=== PATIENT | female | born 1940 | race Caucasian/White ===

== ENCOUNTER 2018-06-10 13:24 | Outpatient (RCR) | payer MEDICARE ==
[2018-04-19 12:20] LABS: HEMOGLOBIN 15.2 G/DL (11.5-16.0); MEAN PLATELET VOLUME 10.1 FL (7.4-10.4); WHITE BLOOD COUNT 9.5 10^3/uL (4.3-11.0)
[2018-04-19 13:44] LABS: BILIRUBIN,TOTAL 0.3 MG/DL (0.1-1.0); CALCIUM 9.8 MG/DL (8.5-10.1); CREATININE SERUM 0.99 MG/DL (0.60-1.30); POTASSIUM 3.9 MMOL/L (3.6-5.0)
[2018-04-19 13:45] LABS: ALBUMIN 4.2 GM/DL (3.2-4.5); TOTAL PROTEIN 7.3 GM/DL (6.4-8.2)
[2018-06-10 15:11] LABS: HEMOGLOBIN 13.8 G/DL (11.5-16.0); MEAN PLATELET VOLUME 9.8 FL (7.4-10.4); RED CELL DISTRIBUTION WIDTH 14.2 % (10.0-14.5)
[2018-06-10 15:12] LABS: BILIRUBIN,TOTAL 0.5 MG/DL (0.1-1.0); BUN/CREATININE RATIO 13; CALCIUM 9.6 MG/DL (8.5-10.1); CARBON DIOXIDE 24 MMOL/L (21-32); CHLORIDE 100 MMOL/L (98-107); CREATININE SERUM 0.68 MG/DL (0.60-1.30); GFR ESTIMATED > 60; GLUCOSE 154 MG/DL (70-105); POTASSIUM 4.1 MMOL/L (3.6-5.0); SODIUM 139 MMOL/L (135-145)
[2018-06-10 15:13] LABS: ALANINE AMINOTRANSFERASE 57 U/L (0-55); ALBUMIN 4.2 GM/DL (3.2-4.5); ALKALINE PHOSPHATASE 176 U/L (40-136); TOTAL PROTEIN 7.1 GM/DL (6.4-8.2)
[2018-07-01] MEDS ORDERED: HYDR25SU28 RC (11:31)
[2018-07-01] MEDS ORDERED: DIBU56.7 RC (11:31)
== END 2018-07-18 | disposition home or self-care (01) ==
LOC: LAB FS 13:24
PROVIDERS: ATTEND Allergy & Immunology
DX: L40.50 Arthropathic psoriasis, unspecified (principal); E55.9 Vitamin D deficiency, unspecified; Z79.899 Other long term (current) drug therapy
CPT/HCPCS: 36415; 80053; 82306; 82652; 85027; 85652; 86141

== ENCOUNTER → 2018-06-10 | Outpatient (CLI) | payer MEDICARE ==
[~2018-06-10] MED LIST: CATHETER FLUSH 10 ML SYR IV PRN; HOLD METFORMIN - RECEIVED CONTRAST 20 ML VIAL IV SCH; IOHEXOL 350 MG/ML 100 ML (OMNIPAQUE 350) VIAL IV ONE; NS 100 ML (IVPB) BAG IV ONE
--- NOTE | 2018-06-10 15:34 | Diagnostic Imaging Report ---
PROCEDURE: CT chest with contrast only. TECHNIQUE: Multiple contiguous axial images were obtained through the chest after administration of intravenous contrast. Auto Exposure Controls were utilized during the CT exam to meet ALARA standards for radiation dose reduction. INDICATION: Lung nodule noted on previous imaging. COMPARISON: Correlation is made with prior thoracic spine radiographs from earlier the same day. No prior CT chest study is available for comparison. FINDINGS: Thyroid does contain multiple small low-density nodules. No axillary lymphadenopathy is seen. There is a central right hilar mass which surrounds the right mainstem bronchus and appears to narrow the right mainstem bronchus. This also narrows the right upper lobe bronchus. Mass measures approximately 3.6 cm AP x 4.5 cm transverse. There is abnormal soft tissue extending into the subcarinal region. Prominent lymph nodes in the right infrahilar location are noted. Left hilum is unremarkable. AP window is unremarkable. The central right hilar mass is inseparable from significant consolidation involving the right upper lobe consistent with post-obstructive pneumonitis or atelectasis. No pericardial or pleural fluid is identified. There is a nodule in the left upper lobe. Metastatic nodule is suspected. There are multiple nodular densities in the superior segment of the right lower lobe, suspicious for metastatic nodules. In aggregate, this area measures approximately 3.2 x 1.3 cm. There is some scarring in the right middle lobe and lingula. Imaging through the upper abdomen demonstrates several small liver cysts. However, in addition, there are numerous solid-appearing masses throughout both lobes of the liver consistent with hepatic metastatic disease. No adrenal mass is identified. IMPRESSION: Right hilar mass suggestive of primary lung neoplasm. This is inseparable from an area of consolidation in the right upper lobe consistent with post-obstructive pneumonitis. There is mediastinal lymphadenopathy. There are nodular densities in the pulmonary parenchyma bilaterally consistent with metastatic nodules. In addition, there are numerous solid masses throughout the liver consistent with hepatic metastatic disease. Dictated by: Dictated on workstation # [id number]
== END ==
LOC: RAD FS 13:28
PROVIDERS: ATTEND Family Medicine
DX: Z01.818 Encounter for other preprocedural examination (principal); J18.1 Lobar pneumonia, unspecified organism; J98.4 Other disorders of lung; R16.0 Hepatomegaly, not elsewhere classified; R59.0 Localized enlarged lymph nodes; R91.8 Other nonspecific abnormal finding of lung field
CPT/HCPCS: 71260

== ENCOUNTER → 2018-06-10 | Outpatient (CLI) | payer MEDICARE ==
--- NOTE | 2018-06-10 10:29 | Diagnostic Imaging Report ---
CLINICAL INDICATION: Patient picked up a full mop bucket and went to empty it above her and felt pain 3 weeks ago. Pain is getting worse. EXAM: X-ray of the thoracic spine, 4 views. COMPARISON: None. FINDINGS: There is osteopenia which limits evaluation of bony detail. The upper thoracic vertebra are obscured by overlapping bone and soft tissue. There is an area of consolidation involving the medial right lung apex which extends to the superior right perihilar region. There is pleural thickening in the right lung apex region as well. There is an 11 mm nodular area involving the periphery of the left lung apex. There are increased lung markings seen throughout both lungs and patchy consolidation involving the left lung base. There is a compression deformity of a mid thoracic vertebra of unknown age. There are small degenerative spurs involving the thoracic spine. IMPRESSION: 1. There is an area of consolidation and adjacent pleural thickening in the right lung apex. A mass versus atelectasis/lung collapse may be considered. A CT scan of the chest with contrast is suggested for further evaluation. 2. There is an 11 mm nodular area involving the periphery of the left lung apex. This also would be better evaluated with a chest CT scan. 3. There is a compression deformity of the mid thoracic spine of unknown age. This would be better characterized on chest CT scan. 4. There are increased lung markings throughout both lungs and patchy consolidation involving the left lung base. These findings may be related to atelectasis or scarring but lung infiltrates cannot be completely excluded. 5. The results of this report were discussed with nurse Alee working with Dr. Hannah Mercado, via the telephone on 06/10/2018 at 1025 hours. Dictated by: Dictated on workstation # [id number]
[2018-06-10 14:22] LABS: CREATININE SERUM 0.69 MG/DL (0.60-1.30)
== END ==
LOC: RAD FS 09:29
PROVIDERS: ATTEND Family Medicine
DX: J18.1 Lobar pneumonia, unspecified organism (principal); M43.8X4 Other specified deforming dorsopathies, thoracic region; R91.1 Solitary pulmonary nodule; M54.6 Pain in thoracic spine; X50.0XXA Overexertion from strenuous movement or load, initial encounter
CPT/HCPCS: 36415; 72072; 82565; 84520

== ENCOUNTER 2018-07-01 10:05 | Emergency (ER) | payer MEDICARE ==
[~2018-07-01] VITALS: Ht 154.9 cm; Wt 71.2 kg
--- NOTE | 2018-07-01 11:01 | ED GI ---
General Chief Complaint: Rect Problems Stated Complaint: RECTAL PAIN Nursing Triage Note: PT HAD SURGERY ON HER UPPER BACK LAST SUNDAY AND HAS RECTAL PAIN SINCE YESTERDAY. HAD A BM 2 DAYS AGO. REPORTS SOFT. HAS NOT TAKEN ANYTHING FOR PAIN TODAY. HX OF HEMORROIDS. Sepsis Screen: No Definite Risk Source of Information: Patient, RN Notes Reviewed Exam Limitations: No Limitations History of Present Illness Date Seen by Provider: July 01, 2018 Time Seen by Provider: 10:59 Allergies and Home Medications Allergies Coded Allergies: No Allergy Information Available (Unverified , 06/10/18) Past Bhkswoq-Zbmocf-Sgiufo Hx Patient Social History Alcohol Use: Denies Use Recreational Drug Use: No Smoking Status: Current Everyday Smoker Type Used: Cigarettes 2nd Hand Smoke Exposure: Yes Recent Foreign Travel: No Contact w/Someone Who Travel: No Recent Infectious Disease Expo: No Recent Hopitalizations: Yes Physical Abuse: No Sexual Abuse: No Mistreated: No Fear: No Seasonal Allergies Seasonal Allergies: No Past Medical History Surgeries: Yes Bladder Surgery, Bowel Surgery, CABG, Coronary Stent, Eye Surgery, Hysterectomy , Orthopedic Respiratory: Yes COPD Cardiac: Yes Hypertension Neurological: No Genitourinary: No Musculoskeletal: Yes Chronic Back Pain Endocrine: No HEENT: No Cancer: No Psychosocial: No Integumentary: Yes Psoriasis Blood Disorders: No Physical Exam Vital Signs Vital Signs - First Documented 07/01/18 10:40 Temp 96.7 Pulse 80 B/P (MAP) 142/69 (93) Pulse Ox 97 O2 Delivery Room Air Capillary Refill : NONE Height/Weight/BMI Height: 5'1.00" Weight: 157lbs. oz. 71.500894oa; BMI Method:Stated Progress/Results/Core Measures Results/Orders Vital Signs/I&O 07/01/18 10:40 Temp 96.7 Pulse 80 B/P (MAP) 142/69 (93) Pulse Ox 97 O2 Delivery Room Air Blood Pressure Mean: 93 Departure Impression Primary Impression: Rectal or anal pain Disposition: 01 HOME, SELF-CARE Condition: Stable Departure-Patient Inst. Decision time for Depature: 11:26 Referrals: ELIAS REINA MD (PCP/Family) Primary Care Physician Patient Instructions: Anal Fissure (DC) Add. Discharge Instructions: All discharge instructions reviewed with patient and/or family. Voiced understanding. RECOMMEND 400 mg OF IBUPROFEN EVERY 6 HOURS NEEDED FOR PAIN. MAY ALSO TAKE 1000 mg OF TYLENOL EVERY 6 HOURS WELL IF NEEDED FOR PAIN. DO NOT EXCEED 4000 mg OF TYLENOL IN A 24 HOUR PERIOD. Scripts Hydrocortisone Acetate (Anusol-Hc) 25 Mg Supp.rect 25 MG RC BID for 14 Days, #30 SUPP.RECT 0 Refills Prov: BURT ESPAÑA DO 07/01/18 Dibucaine (Nupercainal) 56.7 Gm Oint...g. 56.7 GM RC QID, #1 TUBE 1 Refill Prov: BURT ESPAÑA DO 07/01/18 BURT ESPAÑA DO July 01, 2018 11:01
[2018-07-01] MEDS ORDERED: DIBU56.7 RC (11:31)
[2018-07-01] MEDS ORDERED: HYDR25SU28 RC (11:31)
[2018-07-01 11:45] VITALS: BP 132/68
== END 2018-07-01 11:46 | disposition home or self-care (01) ==
LOC: EDUNIT# 10:05 → ER FS 10:06
DX: K62.89 Other specified diseases of anus and rectum (principal); J44.9 Chronic obstructive pulmonary disease, unspecified; I10 Essential (primary) hypertension; F17.210 Nicotine dependence, cigarettes, uncomplicated; Z87.19 Personal history of other diseases of the digestive system; Z98.890 Other specified postprocedural states; Z95.1 Presence of aortocoronary bypass graft; Z90.710 Acquired absence of both cervix and uterus; Z95.5 Presence of coronary angioplasty implant and graft
CPT/HCPCS: 99284

== ENCOUNTER 2018-08-10 21:13 | Emergency (ER) | payer MEDICARE ==
[~2018-08-10] VITALS: Ht 154.9 cm; Wt 63.5 kg
[~2018-08-10 21:13] MED LIST changes: -CATHETER FLUSH 10 ML SYR IV PRN; +DIBU56.7 RC; -HOLD METFORMIN - RECEIVED CONTRAST 20 ML VIAL IV SCH; +HYDR25SU28 RC; -IOHEXOL 350 MG/ML 100 ML (OMNIPAQUE 350) VIAL IV ONE; -NS 100 ML (IVPB) BAG IV ONE
--- OUTSIDE RECORDS SUMMARY | 2018-08-10 21:20 | XMS REPORT | Continuity of Care Document ---
Author Organization Unknown Address Unknown Allergies Active Description Code Type Severity Reaction Onset Reported/Identified Relationship to Patient Clinical Status Yes No Allergy Information Available [id number] Drug Allergy Unknown N/A 06/10/2018 Medications There is no data. Problems Date Dx Coded Attending Type Code Diagnosis Diagnosed By 04/19/2018 TONIA CASTANON MD, Ot L40.50 ARTHROPATHIC PSORIASIS, UNSPECIFIED 04/19/2018 TONIA CASTANON MD, Ot L40.50 ARTHROPATHIC PSORIASIS, UNSPECIFIED 06/10/2018 TONIA CASTANON MD, Ot L40.50 ARTHROPATHIC PSORIASIS, UNSPECIFIED 06/11/2018 ELIAS REINA MD Ot J18.1 LOBAR PNEUMONIA, UNSPECIFIED ORGANISM 06/11/2018 ELIAS REINA MD Ot M43.8X4 OTHER SPECIFIED DEFORMING DORSOPATHIES, 06/11/2018 ELIAS REINA MD Ot M54.6 PAIN IN THORACIC SPINE 06/11/2018 ELIAS REINA MD Ot R91.1 SOLITARY PULMONARY NODULE 06/11/2018 ELIAS REINA MD Ot X50.0XXA OVEREXERTION FROM STRENUOUS MOVEMENT OR 06/11/2018 ELIAS REINA MD Ot J18.1 LOBAR PNEUMONIA, UNSPECIFIED ORGANISM 06/11/2018 ELIAS REINA MD Ot J98.4 OTHER DISORDERS OF LUNG 06/11/2018 ELIAS REINA MD Ot R16.0 HEPATOMEGALY, NOT ELSEWHERE CLASSIFIED 06/11/2018 ELIAS REINA MD Ot R59.0 LOCALIZED ENLARGED LYMPH NODES 06/11/2018 ELIAS REINA MD Ot R91.8 OTHER NONSPECIFIC ABNORMAL FINDING OF CHRISTY 06/11/2018 ELIAS REINA MD Ot Z01.818 ENCOUNTER FOR OTHER PREPROCEDURAL EXAMIN 06/11/2018 ELIAS REINA MD, Ot J18.1 LOBAR PNEUMONIA, UNSPECIFIED ORGANISM 06/11/2018 REINA MD, ELIAS M Ot M43.8X4 OTHER SPECIFIED DEFORMING DORSOPATHIES, 06/11/2018 ELIAS REINA MD Ot M54.6 PAIN IN THORACIC SPINE 06/11/2018 ELIAS REINA MD Ot R91.1 SOLITARY PULMONARY NODULE 06/11/2018 ELIAS REINA MD Ot X50.0XXA OVEREXERTION FROM STRENUOUS MOVEMENT OR 06/12/2018 ELIAS REINA MD Ot J18.1 LOBAR PNEUMONIA, UNSPECIFIED ORGANISM 06/12/2018 ELIAS REINA MD Ot J98.4 OTHER DISORDERS OF LUNG 06/12/2018 ELIAS REINA MD Ot R16.0 HEPATOMEGALY, NOT ELSEWHERE CLASSIFIED 06/12/2018 ELIAS REINA MD Ot R59.0 LOCALIZED ENLARGED LYMPH NODES 06/12/2018 ELIAS REINA MD Ot R91.8 OTHER NONSPECIFIC ABNORMAL FINDING OF CHRISTY 06/12/2018 ELIAS REINA MD Ot Z01.818 ENCOUNTER FOR OTHER PREPROCEDURAL EXAMIN 06/12/2018 ELIAS REINA MD Ot J18.1 LOBAR PNEUMONIA, UNSPECIFIED ORGANISM 06/12/2018 ELIAS REINA MD Ot J98.4 OTHER DISORDERS OF LUNG 06/12/2018 ELIAS REINA MD Ot R16.0 HEPATOMEGALY, NOT ELSEWHERE CLASSIFIED 06/12/2018 ELIAS REINA MD Ot R59.0 LOCALIZED ENLARGED LYMPH NODES 06/12/2018 ELIAS REINA MD Ot R91.8 OTHER NONSPECIFIC ABNORMAL FINDING OF CHRISTY 06/12/2018 ELIAS REINA MD Ot Z01.818 ENCOUNTER FOR OTHER PREPROCEDURAL EXAMIN 06/13/2018 ELIAS REINA MD Ot J18.1 LOBAR PNEUMONIA, UNSPECIFIED ORGANISM 06/13/2018 ELIAS REINA MD Ot M43.8X4 OTHER SPECIFIED DEFORMING DORSOPATHIES, 06/13/2018 ELIAS REINA MD Ot M54.6 PAIN IN THORACIC SPINE 06/13/2018 ELIAS REINA MD Ot R91.1 SOLITARY PULMONARY NODULE 06/13/2018 ELIAS REINA MD Ot X50.0XXA OVEREXERTION FROM STRENUOUS MOVEMENT OR 06/13/2018 ELIAS REINA MD, Ot J18.1 LOBAR PNEUMONIA, UNSPECIFIED ORGANISM 06/13/2018 ELIAS REINA MD Ot J98.4 OTHER DISORDERS OF LUNG 06/13/2018 ELIAS REINA MD Ot R16.0 HEPATOMEGALY, NOT ELSEWHERE CLASSIFIED 06/13/2018 ELIAS REINA MD Ot R59.0 LOCALIZED ENLARGED LYMPH NODES 06/13/2018 ELIAS REINA MD Ot R91.8 OTHER NONSPECIFIC ABNORMAL FINDING OF CHRISTY 06/13/2018 ELIAS REINA MD, Ot Z01.818 ENCOUNTER FOR OTHER PREPROCEDURAL EXAMIN 06/13/2018 LG PICKERING, TONIA Mercer Ot L40.50 ARTHROPATHIC PSORIASIS, UNSPECIFIED 06/16/2018 ELIAS REINA MD, Ot J18.1 LOBAR PNEUMONIA, UNSPECIFIED ORGANISM 06/16/2018 ELIAS REINA MD Ot M43.8X4 OTHER SPECIFIED DEFORMING DORSOPATHIES, 06/16/2018 ELIAS REINA MD Ot M54.6 PAIN IN THORACIC SPINE 06/16/2018 ELIAS REINA MD, Ot R91.1 SOLITARY PULMONARY NODULE 06/16/2018 ELIAS REINA MD Ot X50.0XXA OVEREXERTION FROM STRENUOUS MOVEMENT OR 07/01/2018 BURT ESPAÑA DO Ot F17.210 NICOTINE DEPENDENCE, CIGARETTES, UNCOMPL 07/01/2018 BURT ESPAÑA DO Ot I10 ESSENTIAL (PRIMARY) HYPERTENSION 07/01/2018 BURT ESPAÑA DO, Ot J44.9 CHRONIC OBSTRUCTIVE PULMONARY DISEASE, U 07/01/2018 BURT ESPAÑA DO Ot K62.89 OTHER SPECIFIED DISEASES OF ANUS AND REC 07/01/2018 BURT ESPAÑA DO, Ot Z87.19 PERSONAL HISTORY OF OTHER DISEASES OF TH 07/01/2018 BURT ESPAÑA DO, Ot Z90.710 ACQUIRED ABSENCE OF BOTH CERVIX AND UTER 07/01/2018 BURT ESPAÑA DO Ot Z95.1 PRESENCE OF AORTOCORONARY BYPASS GRAFT 07/01/2018 BURT ESPAÑA DO Ot Z95.5 PRESENCE OF CORONARY ANGIOPLASTY IMPLANT 07/01/2018 BURT ESPAÑA DO, Ot Z98.890 OTHER SPECIFIED POSTPROCEDURAL STATES 07/02/2018 ELIAS REINA MD, Ot J18.1 LOBAR PNEUMONIA, UNSPECIFIED ORGANISM 07/02/2018 ELIAS REINA MD, Ot M43.8X4 OTHER SPECIFIED DEFORMING DORSOPATHIES, 07/02/2018 ELIAS REINA MD, Ot M54.6 PAIN IN THORACIC SPINE 07/02/2018 ELIAS REINA MD, Ot R91.1 SOLITARY PULMONARY NODULE 07/02/2018 ELIAS REINA MD, Ot X50.0XXA OVEREXERTION FROM STRENUOUS MOVEMENT OR 07/04/2018 BURT ESPAÑA DO, Ot F17.210 NICOTINE DEPENDENCE, CIGARETTES, UNCOMPL 07/04/2018 BURT ESPAÑA DO, Ot I10 ESSENTIAL (PRIMARY) HYPERTENSION 07/04/2018 BURT ESPAÑA DO, Ot J44.9 CHRONIC OBSTRUCTIVE PULMONARY DISEASE, U 07/04/2018 BURT ESPAÑA DO, Ot K62.89 OTHER SPECIFIED DISEASES OF ANUS AND REC 07/04/2018 BURT ESPAÑA DO, Ot Z87.19 PERSONAL HISTORY OF OTHER DISEASES OF TH 07/04/2018 BURT ESPAÑA DO, Ot Z90.710 ACQUIRED ABSENCE OF BOTH CERVIX AND UTER 07/04/2018 BURT ESPAÑA DO, Ot Z95.1 PRESENCE OF AORTOCORONARY BYPASS GRAFT 07/04/2018 BURT ESPAÑA DO, Ot Z95.5 PRESENCE OF CORONARY ANGIOPLASTY IMPLANT 07/04/2018 BURT ESPAÑA DO, Ot Z98.890 OTHER SPECIFIED POSTPROCEDURAL STATES 07/04/2018 ELIAS REINA MD, Ot J18.1 LOBAR PNEUMONIA, UNSPECIFIED ORGANISM 07/04/2018 ELIAS REINA MD, Ot J98.4 OTHER DISORDERS OF LUNG 07/04/2018 ELIAS REINA MD, Ot R16.0 HEPATOMEGALY, NOT ELSEWHERE CLASSIFIED 07/04/2018 ELIAS REINA MD, Ot R59.0 LOCALIZED ENLARGED LYMPH NODES 07/04/2018 ELIAS REINA MD, Ot R91.8 OTHER NONSPECIFIC ABNORMAL FINDING OF CHRISTY 07/04/2018 ELIAS REINA MD, Ot Z01.818 ENCOUNTER FOR OTHER PREPROCEDURAL EXAMIN 07/09/2018 TONIA CASTANON MD Ot L40.50 ARTHROPATHIC PSORIASIS, UNSPECIFIED 07/18/2018 TONIA CASTANON MD Ot E55.9 VITAMIN D DEFICIENCY, UNSPECIFIED 07/18/2018 TONIA CASTANON MD, Ot L40.50 ARTHROPATHIC PSORIASIS, UNSPECIFIED 07/18/2018 TONIA CASTANON MD, Ot Z79.899 OTHER ARC TRIMMER (CURRENT) DRUG THERAPY 07/19/2018 TONIA CASTANON MD, Ot E55.9 VITAMIN D DEFICIENCY, UNSPECIFIED 07/19/2018 TONIA CASTANON MD, Ot L40.50 ARTHROPATHIC PSORIASIS, UNSPECIFIED 07/19/2018 TONIA CASTANON MD, Ot Z79.899 OTHER ARC TRIMMER (CURRENT) DRUG THERAPY Procedures There is no data. Results Test Result Range Automated blood complete blood count (hemogram) panel - 04/19/18 12:10 Blood leukocytes automated count (number/volume) 9.5 10*3/uL 4.3-11.0 Blood erythrocytes automated count (number/volume) 4.74 10*6/uL 4.35-5.85 Venous blood hemoglobin measurement (mass/volume) 15.2 g/dL 11.5-16.0 Blood hematocrit (volume fraction) 47 % 35-52 Automated erythrocyte mean corpuscular volume 99 [foz_us] 80-99 Automated erythrocyte mean corpuscular hemoglobin (mass per erythrocyte) 32 pg 25-34 Automated erythrocyte mean corpuscular hemoglobin concentration measurement (mass/volume) 32 g/dL 32-36 Automated erythrocyte distribution width ratio 14.0 % 10.0- 14.5 Automated blood platelet count (count/volume) 289 10*3/uL 130-400 Automated blood platelet mean volume measurement 10.1 [foz_us] 7.4-10.4 Erythrocyte sedimentation rate by westergren method - 04/19/18 12:10 Erythrocyte sedimentation rate by westergren method 17 mm 0-30 Comprehensive metabolic panel - 04/19/18 12:10 Serum or plasma sodium measurement (moles/volume) 139 mmol/L 135-145 Serum or plasma potassium measurement (moles/volume) 3.9 mmol/L 3.6-5.0 Serum or plasma chloride measurement (moles/volume) 100 mmol/L 98-107 Carbon dioxide 28 mmol/L 21-32 Serum or plasma anion gap determination (moles/volume) 11 mmol/L 5-14 Serum or plasma urea nitrogen measurement (mass/volume) 11 mg/dL 7-18 Serum or plasma creatinine measurement (mass/volume) 0.99 mg/dL 0.60-1.30 Serum or plasma urea nitrogen/creatinine mass ratio 11 NRG Serum or plasma creatinine measurement with calculation of estimated glomerular filtration rate 55 NRG Serum or plasma glucose measurement (mass/volume) 92 mg/dL 70-105 Serum or plasma calcium measurement (mass/volume) 9.8 mg/dL 8.5-10.1 Serum or plasma total bilirubin measurement (mass/volume) 0.3 mg/dL 0.1-1.0 Serum or plasma alkaline phosphatase measurement (enzymatic activity/volume) 112 U/L 40-136 Serum or plasma aspartate aminotransferase measurement (enzymatic activity/volume) 15 U/L 5-34 Serum or plasma alanine aminotransferase measurement (enzymatic activity/volume) 13 U/L 0-55 Serum or plasma protein measurement (mass/volume) 7.3 g/dL 6.4-8.2 Serum or plasma albumin measurement (mass/volume) 4.2 g/dL 3.2-4.5 CALCIUM CORRECTED 9.6 mg/dL 8.5-10.1 Serum or plasma C reactive protein measurement (mass/volume) - 04/19/18 12:10 Serum or plasma C reactive protein measurement (mass/volume) 1.50 mg/dL 0.00-0.50 Serum or plasma calcitriol measurement (mass/volume) - 04/19/18 12:10 Serum or plasma calcitriol measurement (mass/volume) 45.9 pg/mL 19.9-79.3 Serum or plasma urea nitrogen measurement (mass/volume) - 06/10/18 13:45 Serum or plasma urea nitrogen measurement (mass/volume) 9 mg/dL 7-18 Serum or plasma creatinine measurement (mass/volume) - 06/10/18 13:45 Serum or plasma creatinine measurement (mass/volume) 0.69 mg/dL 0.60-1.30 Automated blood complete blood count (hemogram) panel - 06/10/18 13:45 Blood leukocytes automated count (number/volume) 10.0 10*3/uL 4.3-11.0 Blood erythrocytes automated count (number/volume) 4.33 10*6/uL 4.35-5.85 Venous blood hemoglobin measurement (mass/volume) 13.8 g/dL 11.5-16.0 Blood hematocrit (volume fraction) 43 % 35-52 Automated erythrocyte mean corpuscular volume 100 [foz_us] 80-99 Automated erythrocyte mean corpuscular hemoglobin (mass per erythrocyte) 32 pg 25-34 Automated erythrocyte mean corpuscular hemoglobin concentration measurement (mass/volume) 32 g/dL 32-36 Automated erythrocyte distribution width ratio 14.2 % 10.0- 14.5 Automated blood platelet count (count/volume) 320 10*3/uL 130-400 Automated blood platelet mean volume measurement 9.8 [foz_us] 7.4-10.4 Erythrocyte sedimentation rate by westergren method - 06/10/18 13:45 Erythrocyte sedimentation rate by westergren method 30 mm 0-30 Comprehensive metabolic panel - 06/10/18 13:45 Serum or plasma sodium measurement (moles/volume) 139 mmol/L 135-145 Serum or plasma potassium measurement (moles/volume) 4.1 mmol/L 3.6-5.0 Serum or plasma chloride measurement (moles/volume) 100 mmol/L 98-107 Carbon dioxide 24 mmol/L 21-32 Serum or plasma anion gap determination (moles/volume) 15 mmol/L 5-14 Serum or plasma urea nitrogen measurement (mass/volume) 9 mg/dL 7-18 Serum or plasma creatinine measurement (mass/volume) 0.68 mg/dL 0.60-1.30 Serum or plasma urea nitrogen/creatinine mass ratio 13 NRG Serum or plasma creatinine measurement with calculation of estimated glomerular filtration rate > NRG Serum or plasma glucose measurement (mass/volume) 154 mg/dL 70-105 Serum or plasma calcium measurement (mass/volume) 9.6 mg/dL 8.5-10.1 Serum or plasma total bilirubin measurement (mass/volume) 0.5 mg/dL 0.1-1.0 Serum or plasma alkaline phosphatase measurement (enzymatic activity/volume) 176 U/L 40-136 Serum or plasma aspartate aminotransferase measurement (enzymatic activity/volume) 47 U/L 5-34 Serum or plasma alanine aminotransferase measurement (enzymatic activity/volume) 57 U/L 0-55 Serum or plasma protein measurement (mass/volume) 7.1 g/dL 6.4-8.2 Serum or plasma albumin measurement (mass/volume) 4.2 g/dL 3.2-4.5 CALCIUM CORRECTED 9.4 mg/dL 8.5-10.1 Serum or plasma C reactive protein measurement (mass/volume) - 06/10/18 13:45 Serum or plasma C reactive protein measurement (mass/volume) 6.67 mg/dL 0.00-0.50 VITAMIN D 25-HYDROXY - 06/10/18 13:45 VITAMIN D 25-HYDROXY (TOTAL) 40.1 % 30.0-100.0 Encounters ACCT No. Visit Date/Time Discharge Status Pt. Type Provider Facility Loc./Unit Complaint [id number] 07/19/2018 00:11:00 07/19/2018 23:59:59 CLS Preadmit TONIA CASTANON MD [facility] LAB FS L40.50 Z79.899 E55.9 [id number] 06/10/2018 13:24:00 07/18/2018 00:01:00 DIS Outpatient TONIA CASTANON MD [facility] LAB FS L40.50 Z79.899 E55.9 [id number] 07/01/2018 10:06:00 07/01/2018 11:46:00 DIS Emergency BURT ESPAÑA DO [facility] ER FS RECTAL PAIN [id number] 06/10/2018 13:28:00 06/10/2018 23:59:59 CLS Outpatient ELIAS REINA MD [facility] RAD FS LUNG NODULE [id number] 06/10/2018 09:29:00 06/10/2018 23:59:59 CLS Outpatient ELIAS REINA MD [facility] RAD FS M54.6
[2018-08-10] MEDS ORDERED: fentaNYL INJECTION 100 MCG/2 ML AMP IVP STA (21:30)
[2018-08-10] MEDS ORDERED: ONDANSETRON 4 MG/2 ML (SDV) Z0FRAN IVP ONE (21:30)
[2018-08-10 21:45] LABS: HEMATOCRIT 40 % (35-52); HEMOGLOBIN 12.8 G/DL (11.5-16.0); MEAN CORPUSCULAR HEMOGLOBIN 32 PG (25-34); MEAN CORPUSCULAR VOLUME 102 FL (80-99); WHITE BLOOD COUNT 18.4 10^3/uL (4.3-11.0)
[2018-08-10] MEDS ORDERED: NS IV 1000 ML 1,000 ML IV SCH (21:45)
[2018-08-10 21:46] LABS: BASOPHILS % (AUTO) 0 % (0-10); EOSINOPHILS % (AUTO) 0 % (0-10); LYMPHOCYTES # (AUTO) 2.2 X 10^3 (1.0-4.0); LYMPHOCYTES % (AUTO) 12 % (12-44); MEAN CORPUSCULAR HGB CONC 32 G/DL (32-36); MEAN PLATELET VOLUME 10.3 FL (7.4-10.4); MONOCYTES # (AUTO) 1.2 X 10^3 (0.0-1.0); MONOCYTES % (AUTO) 7 % (0-12); NEUTROPHILS # (AUTO) 14.6 X 10^3 (1.8-7.8); NEUTROPHILS % (AUTO) 79 % (42-75); PLATELET COUNT 332 10^3/uL (130-400); RED CELL DISTRIBUTION WIDTH 16.5 % (10.0-14.5)
[2018-08-10 22:04] LABS: BAND NEUTROPHILS 1 %; INR 1.2 (0.8-1.4); LYMPHOCYTES % (MANUAL) 12 %; MONOCYTES % (MANUAL) 4 %; NEUTROPHILS % (MANUAL) 82 %; PROTHROMBIN TIME PATIENT 15.4 SEC (12.2-14.7)
[2018-08-10 22:05] LABS: BASOPHILS % (MANUAL) 0 %; EOSINOPHILS % (MANUAL) 0 %; METAMYELOCYTES % 1 %
[2018-08-10 22:19] LABS: BILIRUBIN,TOTAL 3.1 MG/DL (0.1-1.0); BUN/CREATININE RATIO 38; CALCIUM 9.8 MG/DL (8.5-10.1); CARBON DIOXIDE 24 MMOL/L (21-32); CHLORIDE 94 MMOL/L (98-107); CREATININE SERUM 0.72 MG/DL (0.60-1.30); GFR ESTIMATED > 60; GLUCOSE 89 MG/DL (70-105); POTASSIUM 4.2 MMOL/L (3.6-5.0); SODIUM 135 MMOL/L (135-145)
[2018-08-10 22:20] LABS: ALANINE AMINOTRANSFERASE 61 U/L (0-55); ALBUMIN 3.9 GM/DL (3.2-4.5); ALKALINE PHOSPHATASE 403 U/L (40-136); TOTAL PROTEIN 6.6 GM/DL (6.4-8.2)
[2018-08-10] MEDS ORDERED: RT-ALBUTEROL/IPRATROPIUM 3 ML (DUONEB) VIAL INH ONE (22:30)
[2018-08-10] MEDS ORDERED: FUROSEMIDE 40 MG/4 ML INJ (LASIX) IVP ONE (22:45)
[2018-08-10] MEDS ORDERED: fentaNYL INJECTION 100 MCG/2 ML AMP IVP ONE (23:00)
[2018-08-10] MEDS ORDERED: cefTRIAXone FOR IV USE 1,000 MG in WATER (STERILE) FOR INJECTION 10 ML IV ONE (23:00)
--- NOTE | 2018-08-10 23:11 | ED General ---
General Chief Complaint: Lower Extremity Stated Complaint: FELL INJURED RT LEG Nursing Triage Note: Patient states that she had fallen approximately 2 weeks ago, hurting her right hip. Patient states that the pain and weakness is getting worse. Patient has a large bruise on her right hip that extends down to her thigh. +2 pitting pedal edema is noted bilaterally. She had stopped taking her plavix after she noticed the bruising. Patient is complaining of generalized pain. She is a hospice patient for lung cancer and states her pain medications are not working. Nursing Sepsis Screen: No Definite Risk Source of Information: Patient Exam Limitations: No Limitations History of Present Illness Date Seen by Provider: Aug 10, 2018 Time Seen by Provider: 22:00 Initial Comments Patient is a 78-year-old home hospice patient with diagnosis of metastatic lung cancer currently not on chemotherapy who presents with generalized weakness, generalized pain, bilateral peripheral edema and a large bruise over her right eye, and leg after falling 2 weeks ago. Patient discontinued Plavix at time of fall. Denies fever or vomiting, chest pain. Reports progressive shortness of breath. No nausea or vomiting. Reports decreased appetite and generalized malaise increased increased urinary frequency. Patient has a home hospice nurse help her out and so weak and help of adult children and friends. Patient's primary reason for coming to the used to identify because of continued right leg pain with bruising. Timing/Duration: Changing Over Time Modifying Factors: improves with Movement Allergies and Home Medications Allergies Coded Allergies: codeine (Verified Allergy, Unknown, 08/10/18) Home Medications Dibucaine 56.7 Gm Oint...g., 56.7 GM RC QID Prescribed by: BURT ESPAÑA on 07/01/18 1131 Hydrocortisone Acetate 25 Mg Supp.rect, 25 MG RC BID Prescribed by: BURT ESPAÑA on 07/01/18 1131 Patient Home Medication List Home Medication List Reviewed: Yes Review of Systems Review of Systems Constitutional: see HPI EENTM: see HPI Respiratory: see HPI, cough Cardiovascular: see HPI Genitourinary: see HPI Musculoskeletal: see HPI Skin: see HPI Psychiatric/Neurological: See HPI Hematologic/Lymphatic: See HPI Immunological/Allergic: see HPI Past Ttcbzjl-Kzmayb-Honmhm Hx Past Med/Social Hx: Reviewed Nursing Past Med/Soc Hx Patient Social History Alcohol Use: Denies Use Recreational Drug Use: No Smoking Status: Current Everyday Smoker Type Used: Cigarettes 2nd Hand Smoke Exposure: Yes Recent Foreign Travel: No Contact w/Someone Who Travel: No Recent Infectious Disease Expo: No Recent Hopitalizations: Yes Physical Abuse: No Sexual Abuse: No Mistreated: No Fear: No Seasonal Allergies Seasonal Allergies: No Past Medical History Surgeries: Yes Bladder Surgery, Bowel Surgery, CABG, Coronary Stent, Eye Surgery, Hysterectomy, Orthopedic Respiratory: Yes COPD Cardiac: Yes Hypertension Neurological: No Genitourinary: No Musculoskeletal: Yes Chronic Back Pain Endocrine: No HEENT: No Cancer: No Psychosocial: No Integumentary: Yes Psoriasis Blood Disorders: No Physical Exam Vital Signs Vital Signs - First Documented 08/10/18 21:46 Temp 97.4 Pulse 86 Resp 24 B/P (MAP) 135/117 (123) Pulse Ox 93 O2 Delivery Room Air Capillary Refill : Greater Than 3 Seconds Height, Weight, BMI Height: 5'1.00" Weight: 140lbs. 0oz. [id number]; BMI Method:Stated General Appearance: Chronically ill, Mild Distress Eyes: Bilateral Eye Normal Inspection, Bilateral Eye PERRL HEENT: Pharynx Normal Neck: Supple, JVD Respiratory: Decreased Breath Sounds, Rhonci Cardiovascular: Regular Rate, Rhythm, Other (peripheral edema) Gastrointestinal: Non Tender, Soft Back: Normal Inspection Neurologic/Psychiatric: Alert, No Motor/Sensory Deficits, Normal Mood/Affect, rn concurrent review II-XII Norm as Tested Skin: Other (large bruise, involving right anterior and posterior thigh extend ing inguinal ligament to upper leg/. O deformity) Focused Exam Possible Source: Unknown Progress/Results/Core Measures Suspected Sepsis Recent Fever Within 48 Hours: No Infection Criteria Present: None New/Unexplained Altered Menta: No Sepsis Screen: No Definite Risk SIRS Temperature:97.4 Pulse: 86 Respiratory Rate: 24 Laboratory Tests 08/10/18 21:35: White Blood Count 18.4H Blood Pressure 135 /117 Mean: 123 Laboratory Tests 08/10/18 21:35: Creatinine 0.72, INR Comment 1.2, Platelet Count 332, Total Bilirubin 3.1H Results/Orders Lab Results Laboratory Tests Test 08/10/18 21:35 Range/Units White Blood Count 18.4 H 4.3-11.0 10^3/uL Red Blood Count 3.95 L 4.35-5.85 10^6/uL Hemoglobin 12.8 11.5-16.0 G/DL Hematocrit 40 35-52 % Mean Corpuscular Volume 102 H 80-99 FL Mean Corpuscular Hemoglobin 32 25-34 PG Mean Corpuscular Hemoglobin Concent 32 32-36 G/DL Red Cell Distribution Width 16.5 H 10.0-14.5 % Platelet Count 332 130-400 10^3/uL Mean Platelet Volume 10.3 7.4-10.4 FL Neutrophils (%) (Auto) 79 H 42-75 % Lymphocytes (%) (Auto) 12 12-44 % Monocytes (%) (Auto) 7 0-12 % Eosinophils (%) (Auto) 0 0-10 % Basophils (%) (Auto) 0 0-10 % Neutrophils # (Auto) 14.6 H 1.8-7.8 X 10^3 Lymphocytes # (Auto) 2.2 1.0-4.0 X 10^3 Monocytes # (Auto) 1.2 H 0.0-1.0 X 10^3 Eosinophils # (Auto) 0.0 0.0-0.3 10^3/uL Basophils # (Auto) 0.0 0.0-0.1 10^3/uL Neutrophils % (Manual) 82 % Lymphocytes % (Manual) 12 % Monocytes % (Manual) 4 % Eosinophils % (Manual) 0 % Basophils % (Manual) 0 % Metamyelocytes % 1 % Band Neutrophils 1 % Prothrombin Time 15.4 H 12.2-14.7 SEC INR Comment 1.2 0.8-1.4 Activated Partial Thromboplast Time 27 24-35 SEC Sodium Level 135 135-145 MMOL/L Potassium Level 4.2 3.6-5.0 MMOL/L Chloride Level 94 L 98-107 MMOL/L Carbon Dioxide Level 24 21-32 MMOL/L Anion Gap 17 H 5-14 MMOL/L Blood Urea Nitrogen 27 H 7-18 MG/DL Creatinine 0.72 0.60-1.30 MG/DL Estimat Glomerular Filtration Rate > 60 BUN/Creatinine Ratio 38 Glucose Level 89 70-105 MG/DL Calcium Level 9.8 8.5-10.1 MG/DL Corrected Calcium 9.9 8.5-10.1 MG/DL Total Bilirubin 3.1 H 0.1-1.0 MG/DL Aspartate Amino Transf (AST/SGOT) 126 H 5-34 U/L Alanine Aminotransferase (ALT/SGPT) 61 H 0-55 U/L Alkaline Phosphatase 403 H 40-136 U/L Pro-B-Type Natriuretic Peptide 1145.0 H <75.0 PG/ML Total Protein 6.6 6.4-8.2 GM/DL Albumin 3.9 3.2-4.5 GM/DL My Orders Orders - MEGAN DIAZ DO Cbc With Automated Diff (08/10/18 21:30) Comprehensive Metabolic Panel (08/10/18:30) Protime With Inr (08/10/18:30) Partial Thromboplastin Time (08/10/18:30) Chest 1 View Ap/Pa Only (08/10/18:30) Ua Culture If Indicated (08/10/18:30) Creatine Kinase (08/10/18:30) Probnp Fs (08/10/18:30) Ekg Tracing (08/10/18:30) Fentanyl Injection (Sublimaze Injection (08/10/18 21:30) Ondansetron Injection (Zofran Injectio (08/10/18 21:30) Ns Iv 1000 Ml (Sodium Chloride 0.9%) (08/10/18 21:45) Femur 2 View Right (08/10/18 21:43) Pelvis (Ap) (08/10/18 21:46) Manual Differential (08/10/18 21:35) Albuterol/Ipra Inhalation Soln (Duoneb I (08/10/18 22:30) Svn Small Volume Nebulizer (08/10/18 22:22) Furosemide Injection (Lasix Injection) (08/10/18 22:45) Fentanyl Injection (Sublimaze Injection (08/10/18 23:00) Ceftriaxone For Iv Use (Rocephin For I (08/10/18 23:00) Medications Given in ED Current Medications Medications Dose Ordered Sig/Eliud Route Start Time Stop Time Status Last Admin Dose Admin Albuterol/ Ipratropium 3 ml ONCE ONCE INH 08/10/18 22:30 08/10/18 22:41 DC 08/10/18 22:48 3 ML Ceftriaxone Sodium 1000 mg/ Sterile Water 10 ml @ 200 mls/hr ONCE ONCE IV 08/10/18 23:00 08/10/18 23:02 DC 08/10/18 23:02 200 MLS/HR Fentanyl Citrate 50 mcg ONCE ONCE IVP 08/10/18 23:00 08/10/18 23:01 DC 08/10/18 22:57 50 MCG Furosemide 40 mg ONCE ONCE IVP 08/10/18 22:45 08/10/18 22:46 DC 08/10/18 22:48 40 MG Ondansetron HCl 4 mg ONCE ONCE IVP 08/10/18 21:30 08/10/18 21:32 DC 08/10/18 21:45 4 MG Vital Signs/I&O 08/10/18 21:46 Temp 97.4 Pulse 86 Resp 24 B/P (MAP) 135/117 (123) Pulse Ox 93 O2 Delivery Room Air Capillary Refill : Greater Than 3 Seconds Blood Pressure Mean: 123 Departure Communication (Admissions) Patient is not seeking care or treatment of her underlying medical conditions. She is seeking palliative care in the emergency department. I did offer further diagnosis, and treatment including home antibiotic and diuresis.. The patient states she does not wish for additional treatment after leaving the emergency department. She requests to go home and prefers to follow-up with her home hospice nurse. She understands that she has a terminal diagnosis and does not wish to prolong her illness course. Patient instructed to return to the emergency department should she change her mind. Impression Primary Impression: Traumatic hematoma of right lower leg Additional Impression: Metastatic lung cancer (metastasis from lung to other site) Disposition: 01 HOME, SELF-CARE Condition: Critical Departure-Patient Inst. Referrals: ELIAS REINA MD (PCP/Family) Primary Care Physician Add. Discharge Instructions: Please follow-up with your hospice provider to coordinate outpatient treatment. All discharge instructions reviewed with patient and/or family. Voiced understanding. MEGAN DIAZ DO Aug 10, 2018 23:11
[2018-08-10 23:18] VITALS: BP 134/36
--- NOTE | 2018-08-11 05:57 | Diagnostic Imaging Report ---
INDICATION: Fall. Shortness of air COMPARISON: CT chest dated 06/10/2018 FINDINGS: Single frontal radiographic view of the chest was obtained and demonstrates 1.8 cm nodular lesion within the right [id number] lung field. There is also abnormal dense opacification of the medial right apex. A 1.2 cm nodule is also seen within the lateral margins of the left apex. These findings correspond to masses and nodules seen on recent CT chest dated 06/10/2018. Cardiac silhouette and pulmonary vasculature within normal limits. Lungs are clear. There is no focal consolidation, large effusion, or pneumothorax. IMPRESSION: 1. Redemonstration of postobstructive right upper lobe atelectasis. Obstructive hilar lesion is noted on previous CT chest. 2. Additional smaller bilateral nodules also consistent with soft tissue lesions. 3. No evidence of failure or focal infiltrate. Dictated by: Dictated on workstation # [id number]
--- NOTE | 2018-08-11 07:38 | Diagnostic Imaging Report ---
EXAMINATION: Right femur radiographs, 2 views, 4 images. COMPARISON: None. HISTORY: 78-year-old female, fall. Right hip and femur pain. FINDINGS: There are limitations of the exam relating to material overlying the patient. Ideally, any material overlying the patient should be removed prior to imaging. There is no identified acute fracture. The hip is not dislocated. There is no pronounced joint space loss, osteophyte formation, or subchondral cystic change. There is no identified radiopaque foreign body. IMPRESSION: No identified acute bony abnormality at the level of the right hip or femur. Dictated by: Dictated on workstation # [id number]
--- NOTE | 2018-08-11 07:41 | Diagnostic Imaging Report ---
EXAMINATION: Pelvis, single view. COMPARISON: None. HISTORY: 78-year-old female, fall. Right hip pain. FINDINGS: The patient is rotated. There is a large amount of material overlying the patient which is radiographically visible and does cause significant limitations of evaluation. This is not proper protocol for imaging. Repeat imaging is recommended. There is no gross widening of the pubic symphysis or sacroiliac joints. The hips are not obviously dislocated. There are degenerative changes of the lower lumbar spine. The bones do appear somewhat demineralized. There is no radiographically visible fracture. IMPRESSION: 1. Limitations of the exam relating to material overlying the patient as well as obliquity of imaging. Repeat imaging is recommended. 2. The bones appear somewhat demineralized without radiographically apparent fracture. Dictated by: Dictated on workstation # [id number]
[2018-08-11 14:32] LABS: CREATINE KINASE 75 U/L (29-168)
== END 2018-08-10 23:18 | disposition home or self-care (01) ==
LOC: EDUNIT# 21:13 → ER FS 21:16
DX: S70.11XA Contusion of right thigh, initial encounter (principal); C34.90 Malignant neoplasm of unspecified part of unspecified bronchus or lung; C79.89 Secondary malignant neoplasm of other specified sites; J44.9 Chronic obstructive pulmonary disease, unspecified; I10 Essential (primary) hypertension; F17.210 Nicotine dependence, cigarettes, uncomplicated; Z91.14 Patient's other noncompliance with medication regimen; Z95.1 Presence of aortocoronary bypass graft; Z95.5 Presence of coronary angioplasty implant and graft; Z88.5 Allergy status to narcotic agent; Z90.710 Acquired absence of both cervix and uterus; W19.XXXA Unspecified fall, initial encounter
CPT/HCPCS: 36415; 71045; 72170; 73552; 80053; 82550; 83880; 85007; 85027; 85610; 85730; 93005